=== PATIENT | female | born 1955 | race Caucasian/White ===

== ENCOUNTER 2017-07-08 08:08 | Outpatient (CLI) | payer OTHER ==
[~2017-07-08 08:08] MED LIST: ZOCOR40 MG
== END 2017-07-08 08:17 | disposition home or self-care (01) ==
LOC: SONOGRAMA 08:08 → MAMO-SONO 08:45
DX: S83.231A Complex tear of medial meniscus, current injury, right knee, initial encounter (principal)

== ENCOUNTER 2020-03-20 13:49 | Outpatient (CLI) | payer OTHER | END 2020-03-20 15:55 | disposition home or self-care (01) | LOC: PPH VACUNA 13:49 | PROVIDERS: ATTEND Emergency Medicine Pediatric Emergency Medicine | DX: Z23 Encounter for immunization (principal) ==

== ENCOUNTER 2020-04-10 10:00 | Outpatient (CLI) | payer OTHER | END 2020-04-10 11:11 | disposition home or self-care (01) | LOC: PPH VACUNA 10:00 | PROVIDERS: ATTEND Emergency Medicine Pediatric Emergency Medicine | DX: Z23 Encounter for immunization (principal) ==

== ENCOUNTER 2020-05-07 13:26 | Outpatient (CLI) | payer OTHER | END 2020-05-07 13:34 | disposition home or self-care (01) | LOC: RAD 13:26 → MAMO-SONO 14:00 | PROVIDERS: ATTEND Internal Medicine Endocrinology, Diabetes & Metabolism | DX: Z12.31 Encounter for screening mammogram for malignant neoplasm of breast (principal); I11.9 Hypertensive heart disease without heart failure; R06.02 Shortness of breath ==

== ENCOUNTER 2021-06-28 08:00 | Outpatient (CLI) | payer OTHER | END 2021-06-28 08:30 | disposition home or self-care (01) | LOC: PPH VACUNA 08:00 | PROVIDERS: ATTEND Emergency Medicine Pediatric Emergency Medicine | DX: Z23 Encounter for immunization (principal) ==

== ENCOUNTER 2021-10-28 10:41 | Outpatient (CLI) | payer OTHER | END 2021-10-28 10:47 | disposition home or self-care (01) | LOC: MAMO-SONO 10:41 | PROVIDERS: ATTEND General Practice | DX: Z12.31 Encounter for screening mammogram for malignant neoplasm of breast (principal); N60.99 Unspecified benign mammary dysplasia of unspecified breast; J41.0 Simple chronic bronchitis ==

== ENCOUNTER 2021-11-20 09:27 | Outpatient (CLI) | payer OTHER | END 2021-11-20 09:37 | disposition home or self-care (01) | LOC: MRI 09:27 | PROVIDERS: ATTEND Orthopaedic Surgery | DX: M25.561 Pain in right knee (principal); M25.562 Pain in left knee; S83.200A Bucket-handle tear of unspecified meniscus, current injury, right knee, initial encounter | CPT/HCPCS: 73721 ==

== ENCOUNTER 2022-09-26 10:02 | Outpatient (CLI) | payer OTHER | END 2022-09-26 10:06 | disposition home or self-care (01) | LOC: RAD 10:02 | PROVIDERS: ATTEND Internal Medicine Cardiovascular Disease | DX: Z01.810 Encounter for preprocedural cardiovascular examination (principal); I25.10 Atherosclerotic heart disease of native coronary artery without angina pectoris; R06.00 Dyspnea, unspecified ==

== ENCOUNTER 2022-10-27 09:52 | Outpatient (CLI) | payer OTHER | END 2022-10-27 09:58 | disposition home or self-care (01) | LOC: RAD 09:52 | PROVIDERS: ATTEND Internal Medicine Cardiovascular Disease | DX: R06.00 Dyspnea, unspecified (principal) ==

== ENCOUNTER 2022-12-19 10:25 | Outpatient (CLI) | payer OTHER | END 2022-12-19 10:33 | disposition home or self-care (01) | LOC: MAMO-SONO 10:25 | DX: Z12.31 Encounter for screening mammogram for malignant neoplasm of breast (principal); N60.99 Unspecified benign mammary dysplasia of unspecified breast ==

== ENCOUNTER 2023-02-25 13:37 | Outpatient (CLI) | payer OTHER | END 2023-02-25 13:38 | disposition home or self-care (01) | LOC: NUCLEAR 13:37 | DX: M81.0 Age-related osteoporosis without current pathological fracture (principal) ==

== ENCOUNTER 2024-01-04 13:14 | Outpatient (CLI) | payer OTHER | END 2024-01-04 13:23 | disposition home or self-care (01) | LOC: MAMO-SONO 13:14 | PROVIDERS: ATTEND General Practice | DX: N60.99 Unspecified benign mammary dysplasia of unspecified breast (principal); Z12.31 Encounter for screening mammogram for malignant neoplasm of breast ==

== ENCOUNTER 2024-03-22 11:21 | Outpatient (CLI) | payer OTHER | END 2024-03-22 11:29 | disposition home or self-care (01) | LOC: RAD 11:21 | PROVIDERS: ATTEND Internal Medicine Hematology & Oncology | DX: D51.3 Other dietary vitamin B12 deficiency anemia (principal); D51.1 Vitamin B12 deficiency anemia due to selective vitamin B12 malabsorption with proteinuria; I10 Essential (primary) hypertension; E78.2 Mixed hyperlipidemia; E11.9 Type 2 diabetes mellitus without complications; L80 Vitiligo; L50.1 Idiopathic urticaria; K76.9 Liver disease, unspecified; Z77.22 Contact with and (suspected) exposure to environmental tobacco smoke (acute) (chronic) ==

== ENCOUNTER 2024-05-20 07:42 | Outpatient (CLI) | payer OTHER | END 2024-05-20 07:49 | disposition home or self-care (01) | LOC: SONOGRAMA 07:42 | PROVIDERS: ATTEND Internal Medicine Hematology & Oncology | DX: D51.3 Other dietary vitamin B12 deficiency anemia (principal); D51.1 Vitamin B12 deficiency anemia due to selective vitamin B12 malabsorption with proteinuria; I10 Essential (primary) hypertension; E78.2 Mixed hyperlipidemia; E11.9 Type 2 diabetes mellitus without complications; L80 Vitiligo; L50.1 Idiopathic urticaria ==